=== PATIENT | male | born 1970 | race Caucasian/White ===

== ENCOUNTER → 2019-06-25 10:18 | Outpatient (CLI) | payer MEDICAID, SELFPAY ==
[2019-06-25 11:22] LABS: Hematocrit 35.9 % (40-54); Hemoglobin 11.7 g/dL (13.0-16.5); Mean Corp Hgb Conc 32.6 g/dL (32-36); Mean Corpuscular Hgb 30.3 pg (27.0-32.0); Mean Platelet Vol. 9.5 fl (6.2-12.0); Platelet Count 185 K/mm3 (150-450); RBC Distribution Width CV 12.7 % (11.6-14.6); RBC Distribution Width SD 43.3 fl (35.1-43.9); Red Blood Count 3.86 M/mm3 (4.6-6.2); White Blood Count 6.4 K/mm3 (4.4-11.0)
[2019-06-25 12:06] LABS: ALB/GLOB Ratio 0.5 RATIO (0.9-2.4); AST(SGOT) 47 U/L (15-37); Alanine Aminotransfer ALT/SGPT 52 U/L (16-61); Albumin, Serum 3.1 g/dL (3.2-5.0); Alkaline Phosphatase 73 U/L (45-117); Anion Gap 7 (5-15); BUN 24 mg/dL (7-18); BUN/Creat Ratio 35.2 RATIO (10-20); Calcium,Total 8.6 mg/dL (8.5-10.1); Chloride 105 mmol/L (98-107); Cholesterol 109 mg/dL (200); Creatinine, Serum 0.68 mg/dL (0.70-1.30); EST Glomerular Filtration Rate 131 mL/min (>60); Est Glom Filt Rate - Afr Amer 158 mL/min (>60); Globulin 5.8 g/dL (2.2-4.2); Glucose 86 mg/dL (74-106); High Density Lipoprotein 35 mg/dL; Potassium 3.8 mmol/L (3.5-5.1); Protein, Total 8.9 g/dL (6.4-8.2); Sodium Level 138 mmol/L (136-145); T4 Total, Thyroxin 10.3 ug/dL (4.5-12.1); Thyroid Stim Hormone (TSH) 1.76 uIU/mL (0.358-3.74); Triglycerides 54 mg/dL; Very Low Density Lipoprotein 11 mg/dL (5-40)
[2019-06-25 12:10] LABS: Hepatitis B Surface Antibody Non-Reactive; Hepatitis B Surface Antigen Non-Reactive (Nonreactive)
[2019-06-29 07:15] LABS: Absolute CD4 Helper 365 /uL (359-1519); Basophils (Absolute) 0 x10E3/uL (0.0-0.2); Comment 1b (.); Eosinophils 0 % (Not Estab.); Eosinophils (Absolute) 0 x10E3/uL (0.0-0.4); HCV Quant. RNA PCR 2040000 IU/mL (.); Hematocrit 34.1 % (37.5-51.0); Hemoglobin 11.4 g/dL (13.0-17.7); Hepatitis A AB, Total Positive (Negative); Hepatitis A IgM Antibody Negative (Negative); Immature Granulocytes 0 % (Not Estab.); Immature Granulocytes Absolute 0 x10E3/uL (0.0-0.1); Lymphs 25 % (Not Estab.); Lymphs (Absolute) 1.6 x10E3/uL (0.7-3.1); MCH 29.8 pg (26.6-33.0); MCHC 33.4 g/dL (31.5-35.7); MCV 89 fL (79-97); Monocytes 9 % (Not Estab.); Monocytes (Absolute) 0.6 x10E3/uL (0.1-0.9); Neutrophils 66 % (Not Estab.); Neutrophils (Absolute) 4.2 x10E3/uL (1.4-7.0); Percent % CD4 Pos. Lymph. 22.8 % (30.8-58.5); Platelets 190 x10E3/uL (150-450); RBC Count 3.82 x10E6/uL (4.14-5.80); RDW 13.1 % (12.3-15.4); WBC Count 6.5 x10E3/uL (3.4-10.8)
[2019-06-30 17:40] LABS: Hepatitis B Core Ab Total Negative (Negative)
[2019-06-30 20:19] LABS: HIV-1 RNA by PCR, Quant. 90 copies/mL (.); LOG10 HIV-1 RNA 1.954 (.)
[2019-07-01 10:56] LABS: Hepatitis C Genotype 1b
== END ==
PROVIDERS: Family Provider Family Medicine; PCP Family Medicine; Referring Provider Internal Medicine Infectious Disease; Visit Provider Internal Medicine Infectious Disease
DX: B18.2 Chronic viral hepatitis C (principal); Z21 Asymptomatic human immunodeficiency virus [HIV] infection status
CPT/HCPCS: 36415; 80053; 80061; 84436; 84443; 85027; 86361; 86704; 86706; 86708; 86709; 87340; 87522; 87536; 87902

== ENCOUNTER → 2019-07-04 11:03 | Outpatient (CLI) | payer MEDICAID, SELFPAY ==
[2019-07-04 11:26] VITALS: BP 112/73; PULSE 92; RESP 14; TEMP 36.3; O2SAT 95; BMI 19.8
--- NOTE | 2019-07-04 11:50 | WMO.HTC_ITS ---
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 He lived in [place] and moved to this area, wants to do follow up here. He has done 1 factor replacement for tooth extraction since January 2019. He is being seen at [facility] for Hepatitis C and HIV infection. Health History: Past Medical History (Last Updated 07/04/19 @ 11:24 by Kelin Drake) Arthritis (Acute) Asthma (Acute) HIV disease (Acute) Hemophilia B (Acute) Hepatitis C (Acute) Shingles (Acute) Chronic hip pain (Chronic) Family History (Last Updated 07/04/19 @ 11:24 by Kelin Drake) Father Lymphoma Mother Parkinson disease Social History Social History: No changes Smoking Status Never smoker Allergies/Adverse Reactions: Allergy/AdvReac Type Severity Reaction Status Date / Time aspirin AdvReac Hives Verified 07/04/19 11:20 Risk Factors Social History Social History: No changes Smoking Status Never smoker Tobacco Risk Data: Tobacco Risk Smoking Status Never smoker Type of tobacco: Smokeless tobacco usage: Never Items/Day: Year started: Years used: Counseled to quit/cut down: Reason for no counseling performed: Reason for no pharmacotherapy: Tobacco use comments: Passive smoke exposure: No Substance Risk Drug use: No Caffeine use [drinks/day]: 0 Alcohol use: No Type of alcohol: Drinks per day: Has patient felt the need to cut down: Has the patient been annoyed by complaints: Has the patient felt guilty about drinking: 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: Comments: Review of Systems Constitutional:: Denies: Fever, Sweats, Weight loss, Appetite change, Chills Cardiovascular:: Denies: Chest pain, Palpitations, Dyspnea on exertion, Orthopnea, PND, Shortness of breath Respiratory: Denies: Cough, Hemoptysis, Shortness of Breath, Wheezing Gastrointestinal:: Denies: Abdominal pain, Nausea, Vomiting, Diarrhea, Constipation, Hematochezia Genitourinary: Denies: Dysuria, Hematuria, 15, Flank pain Musculoskeletal:: Reports: Arthritis - R hip Skin: Denies: Rash, Skin Changes, Wounds Neurological:: Denies: Headache, Dizziness, Visual changes, Tinnitus, Hearing loss Psychiatric: Denies: Anxiety, Depression, Homicidal Ideations, Suicidal Ideations Vital Signs Height 5 ft 10.5 in Weight: 63.775 kg Weight in Pounds 140.6 lbs Pulse Ox 95 Temperature 97.3 F Pulse Rate 92 Respiratory Rate 14 Blood Pressure 112/73 Blood Pressure Position Sitting - Physical Exam General: Alert, Oriented x3, No apparent distress HEENT: Atraumatic, PERRLA, EOMI, Normocephalic Oropharynx:: Dry mucosa, Poor dentition - grinded teeth surface Neck:: Supple, Trachea midline. Negative for: JVD, bilateral Cardiac:: Regular rate, Regular rhythm, Normal S1, Normal S2. Negative for: Murmur Lungs: Clear to auscultation, Excusion symmetrical. Negative for: Rhonchi, Wheezes Abdomen:: Bowel sounds x 4, Soft, Non-tender, Non-distended. Negative for: Hepatosplenomegaly Extremities:: - - walking with a R lower leg limp and cane Neurological: Neuro grossly intact Skin:: Negative for: Lesions, Rash, Petechiae, Ecchymosis Psychiatric:: Appropriate affect, Euthymic Lymphatics:: Negative for: Cervical lymphadenopathy, Supraclavicular lymphadenopathy, Axillary lymphadenopathy Therapy ROM Screening - Subjective Subjective:: pts right hip is painful- comes and goes- pt is to have oral sx and then hip sx- pt states he will have to treat his hepC prio to his sx. pt amb. with straight cane - Objective Right shoulder flex:: 165 Left shoulder flex:: 155 Right shoulder extension:: 40 Left shoulder extension:: 40 Right elbox flex/ext:: 0/140 Left elbox flex/ext:: 0/140 Right elbow circumference:: 23cm Left elbow circumference:: 23cm Right forearm sup/pron:: WNL Left forearm sup/pron:: WNL Right knee flexion:: 1120 Left knee flexion:: 120 Right knee circumference:: 32cm Left knee circumference:: 34cm Right ankle dorsiflexion:: 25 Left ankle dorsiflexion:: 25 Right ankle Plan-flex:: 45 Left ankle Plan-flex:: 45 Right ankle circumference:: 23cm Left ankle circumference:: 23cm Right hip flexion:: 40 Left hip flexion:: 75 Right hip extension:: 10 Left hip extension:: 15 - Assessment Assessment:: pt demo limited right hip ROM-consistant with reports of scheduling a right hip replacement. pt use of straight cane for amb. therapist questioned if he felt he needed more suport with amb. pt denied at this time. Assessment and Plan Hemophilia B-clinically stable. Hepatitis C-awaiting therapy at [facility]. HIV-has stopped his medications because it makes his hip pain worse. R hip arthritis. Plan is to continue expectant management for Hemophilia B with Factor replacement as needed. Continue follow up with Orthopedic Surgeon, Hip surgery will done after therapy for hepatitis C. He will discuss HIV treatment with Dr. Signs. PARIS[place] 1 yr. Medications: Prescriptions This Visit Medication Instructions Recorded NK 07/04/19 Primary Care Provider: Tashi Mack DO Referring Provider: Mick Garibay MD
== END ==
PROVIDERS: Family Provider Family Medicine; PCP Family Medicine; Referring Provider Internal Medicine Hematology & Oncology; Visit Provider Internal Medicine Medical Oncology
DX: D67 Hereditary factor IX deficiency (principal); B20 Human immunodeficiency virus [HIV] disease

== ENCOUNTER → 2019-08-25 10:55 | Outpatient (CLI) | payer MEDICAID, SELFPAY ==
[2019-07-04 11:26] VITALS: BMI 19.8
--- NOTE | 2019-08-25 10:58 | US_ITS ---
STUDY: ABDOMINAL ULTRASOUND - RIGHT UPPER QUADRANT REASON FOR VISIT: Male, 48 years old HEP C TECHNIQUE: Ultrasound evaluation of the right upper quadrant was performed with real-time and static moreno-scale imaging. TECHNICAL QUALITY: Adequate. COMPARISON: None. FINDINGS: Pancreas: Visualized portions of pancreas are unremarkable. Liver: Measures 15.5 cm. Liver shows normal echogenicity. No masses identified. Gallbladder: No stones or wall thickening. Negative sonographic Ortiz''s sign. Multiple nonshadowing rounded foci are seen dependently and nondependently within the gallbladder, most likely polyps. Common bile duct: Measures 3 mm. No intraductal stones identified. Right kidney: Measures 9.9 cm in length. Normal contour. No cysts. No masses, stones, or hydronephrosis identified. Renal cortical thickness appears normal. Additional findings: None. US/Liver IMPRESSION: Multiple gallbladder polyps largest measuring up to 3 mm. Polyps of this size do not require regular follow-up as per most commonly held recommendations. Right upper quadrant abdominal ultrasound is otherwise within normal limits. Electronically Signed: Yaya Browne, at 19:53 EST Tel , Service support ,
[2019-08-25 14:46] LABS: Hepatitis C Antibody REACTIVE (Nonreactive)
== END ==
LOC: US 10:57
PROVIDERS: PCP Family Medicine
DX: B18.2 Chronic viral hepatitis C (principal)
CPT/HCPCS: 36415; 76705; 86803

== ENCOUNTER → 2019-11-03 14:13 | Outpatient (CLI) | payer MEDICAID, SELFPAY ==
[2019-07-04 11:26] VITALS: BMI 19.8
[2019-11-03 14:52] LABS: AST(SGOT) 23 U/L (15-37); Alanine Aminotransfer ALT/SGPT 20 U/L (16-61); Albumin, Serum 3.8 g/dL (3.2-5.0); Alkaline Phosphatase 92 U/L (45-117); Bilirubin, Direct 0.11 mg/dL (0.00-0.30); Globulin 4.7 g/dL (2.2-4.2); Protein, Total 8.5 g/dL (6.4-8.2)
[2019-11-06 03:06] LABS: HCV Quant. RNA PCR HCV Not Detected IU/mL (.)
== END ==
PROVIDERS: PCP Family Medicine
DX: B18.2 Chronic viral hepatitis C (principal)
CPT/HCPCS: 36415; 80076; 87522

== ENCOUNTER → 2019-12-23 08:19 | Outpatient (CLI) | payer MEDICAID, SELFPAY ==
[2019-07-04 11:26] VITALS: BMI 19.8
[2019-12-23 09:15] LABS: Absolute Lymphocyte Count 1.07 X10^3/uL (0.83-4.51); Basophil# 0.02 X10^3/uL; Basophil% 0.6 % (0-1); Eosinophil# 0.01 X10^3/uL; Eosinophils% 0.3 % (0-5); Hematocrit 43.5 % (40-54); Lymphocyte # 1.07 X10^3/ul (4.0); Lymphocyte % 31.7 % (19-41); Mean Corp Hgb Conc 32.2 g/dL (32-36); Mean Corpuscular Hgb 30.7 pg (27.0-32.0); Mean Corpuscular Volume 95.4 fL (80-94); Mean Platelet Vol. 9.5 fl (6.2-12.0); Monocyte# 0.32 X10^3/uL; Monocyte% 9.5 % (0-10); NRBC Flagged by Analyzer 0 % (0-5); Neutrophil # 1.95 X10^3/uL (2.7-7.7); Neutrophil % 57.6 % (47-70); Platelet Count 174 K/mm3 (150-450); RBC Distribution Width SD 46.1 fl (35.1-43.9); Red Blood Count 4.56 M/mm3 (4.6-6.2); White Blood Count 3.4 K/mm3 (4.4-11.0)
[2019-12-23 09:47] LABS: ALB/GLOB Ratio 0.8 RATIO (0.9-2.4); AST(SGOT) 20 U/L (15-37); Alanine Aminotransfer ALT/SGPT 24 U/L (16-61); Albumin, Serum 3.8 g/dL (3.2-5.0); Alkaline Phosphatase 86 U/L (45-117); Anion Gap 8 (5-15); BUN 23 mg/dL (7-18); BUN/Creat Ratio 26.1 RATIO (10-20); Bilirubin, Direct 0.13 mg/dL (0.00-0.30); Calcium,Total 8.7 mg/dL (8.5-10.1); Chloride 103 mmol/L (98-107); Cholesterol 165 mg/dL (200); Creatinine, Serum 0.88 mg/dL (0.70-1.30); EST Glomerular Filtration Rate 97 mL/min (>60); Est Glom Filt Rate - Afr Amer 117 mL/min (>60); Globulin 4.6 g/dL (2.2-4.2); Glucose 88 mg/dL (74-106); High Density Lipoprotein 46 mg/dL; Protein, Total 8.4 g/dL (6.4-8.2); Sodium Level 140 mmol/L (136-145); Thyroid Stim Hormone (TSH) 1.72 uIU/mL (0.358-3.74); Triglycerides 57 mg/dL; Very Low Density Lipoprotein 11 mg/dL (5-40)
[2019-12-24 17:17] LABS: Anti-Mitochondrial AB <20.0 Units (0.0-20.0)
[2019-12-26 16:08] LABS: Absolute CD4 Helper 378 /uL (359-1519); Basophils (Absolute) 0 x10E3/uL (0.0-0.2); Eosinophils 0 % (Not Estab.); Eosinophils (Absolute) 0 x10E3/uL (0.0-0.4); HCV Quant. RNA PCR HCV Not Detected IU/mL (.); Hematocrit 41.5 % (37.5-51.0); Hemoglobin 14.4 g/dL (13.0-17.7); Immature Granulocytes 1 % (Not Estab.); Immature Granulocytes Absolute 0 x10E3/uL (0.0-0.1); Lymphs 34 % (Not Estab.); Lymphs (Absolute) 1.1 x10E3/uL (0.7-3.1); MCH 32.1 pg (26.6-33.0); MCHC 34.7 g/dL (31.5-35.7); MCV 92 fL (79-97); Monocytes 7 % (Not Estab.); Monocytes (Absolute) 0.2 x10E3/uL (0.1-0.9); Neutrophils 57 % (Not Estab.); Neutrophils (Absolute) 1.8 x10E3/uL (1.4-7.0); Percent % CD4 Pos. Lymph. 34.4 % (30.8-58.5); Platelets 180 x10E3/uL (150-450); QNTFERON TB Mitogen Value > 10.00 IU/mL (.); QNTFERON TB Nil Value 0.04 IU/mL (.); QNTFERON TB1+ Ag Value 0.09 IU/mL (.); QNTFERON TB2+ Ag Value 0.04 IU/mL (.); RBC Count 4.49 x10E6/uL (4.14-5.80); RDW 13.8 % (11.6-15.4); WBC Count 3.2 x10E3/uL (3.4-10.8)
[2019-12-27 15:52] LABS: QNTIFERON TB Positive Criteria Negative (Negative)
[2019-12-28 21:14] LABS: HIV-1 RNA by PCR, Quant. < 20 copies/mL (.)
== END ==
PROVIDERS: PCP Family Medicine; Referring Provider Internal Medicine Infectious Disease; Visit Provider Internal Medicine Infectious Disease
DX: B18.2 Chronic viral hepatitis C (principal); Z21 Asymptomatic human immunodeficiency virus [HIV] infection status
CPT/HCPCS: 36415; 80053; 80061; 82248; 83516; 84443; 85025; 86361; 86480; 87522; 87536

== ENCOUNTER → 2020-02-24 09:42 | Outpatient (CLI) | payer MEDICAID, SELFPAY ==
[2019-07-04 11:26] VITALS: BMI 19.8
--- NOTE | 2020-02-24 09:52 | BD_ITS ---
STUDY: DUAL ENERGY X-RAY ABSORPTIOMETRY / DXA REASON FOR EXAM: Male, 49 years old. ON ANTI-VIRAL MEDS FOR HIV -- DOES NO EXERCISE -- LORETTA OF 2.5 INCHES TECHNIQUE: Bone Mineral Density (BMD) measurements of lumbar spine and bilateral hips were obtained. COMPARISON: None. FINDINGS: Lumbar Spine (L1-L4): g/cm2 (0.777) / T-score (-3.7) / Z-score (-3.5) Findings are suggestive of osteoporosis with a high fracture risk. Left Femur Total: g/cm2 (0.940) / T-score (-1.1) / Z-score (-0.8) Left Femoral Neck: g/cm2 (0.824) / T-score (-1.9) / Z-score (-1.2) Right Femur Total: g/cm2 (0.748) / T-score (-2.5) / Z-score (-2.1) Right Femoral Neck: g/cm2 (0.920) / T-score (-1.2) / Z-score (-0.5) BD/Dexa Bone Density Study IMPRESSION: The patient is considered osteoporotic as outlined below according to World Richard Organization (WHO) criteria with a high fracture risk. Reference Information: The T-score is the number of standard deviations above or below the standard which is normal for young adults at their peak bone mineral density. The World Health Organization (WHO) interprets the T-scores as follows: Above -1 Normal bone density Between -1 and -2.5 Osteopenia Equal to / or below -2.5 Osteoporosis As a practical clinical guideline, osteopenia may be graded as follows: Mild -1 through -1.5 Moderate -1.6 through -2.0 Severe -2.1 through -2.4 The Z-score is the number of standard deviations above or below age-matched controls. A Z-score of less than -1.5 would be considered abnormal. References: 1. NIH Osteoporosis and Related Bone Diseases http://www.osteo.org 2. International Society for Clinical Densitometry http://www.iscd.org 3. National Osteoporosis Foundation http://www.nof.org Electronically Signed: Hu Stewart, at 14:53 EDT , Service support ,
== END ==
PROVIDERS: PCP Family Medicine
DX: Z21 Asymptomatic human immunodeficiency virus [HIV] infection status (principal)
CPT/HCPCS: 77080

== ENCOUNTER 2020-05-18 10:18 | Outpatient (RCR) | payer MEDICAID, SELFPAY ==
[2019-07-04 11:26] VITALS: BMI 19.8
--- NOTE | 2020-05-18 10:51 | HP.PTEVAL ---
Patient's Visit Information BARBARA SONG is a 49 year old M referred to Physical Therapy by NAYE MEADE with a diagnosis of S/P R BRITTON lateral approach. Date of Evaluation: 05/18/20 Physical Therapist: ISAEL Bond - Visit Plan Frequency: 2-3x /Week Duration: 4-6 Weeks Plan: 2-3X/ week for 4-6 weeks for R hip abd strength, overall R hip strength, gait training, stairs, sit to stand transfers, gait training with HEP - Subjective Pt had a R THR down at [facility] on 04-07-2020. n He has a scar on the R lateral side of his hip. He is walking with a cane in his L hand for about a week and was walking with a walker before that. He has some other complications and getting lab work down as he is dizzy and fatigued. That started Apr 24.... that is the last infusion he took for his bleed complications.... the last 2 times it attacked his head and lasted a few hours and then he could think again and he quick the infusions. He lives in a one story home with no steps. He is driving. He reports that he has no trouble getting up out of a chair and he uses his arms. He has no pain in his hip.... he reports that his R hip is [address] do not cross legs. - Objective Gait: He walks with a straight cane in his L hand and walks with decreased time time on the R LE. He walks with a very apparent limp and most of his weight on the opp leg and cane in opp hand. He reports that his R leg is 2 inches shorter and is concerned about that. He has slightly decreased stride length on the R. Pt is very weak with a SLR.. on the R shaky. LE MMT: R hip flex 4-/5 and L hip flex4/5, R hip abd 3-/5 and L 4-/5, pt is able to 1/4 normal ROM bridges, B knee flex and knee ext 4/5 - Goals Goal 1:: I HEP Goal Time Frame: 6-8 Weeks Goal 2:: Increase R hip abd strength to 4-/5 Goal Time Frame: 6-8 Weeks Goal 3:: Walk with increase stride with a straight cane and more of an equal stance time with gait and progress to no cane if able. Goal Time Frame: 6-8 Weeks Goal 4:: Be able to get up out of a chair X 10 attempts with no arms on first attempt - Rehabilitation Potential Rehabilitation Potential: Good - Anticipated Interventions Patient/Client Instruction: Educate patient on: Condition, Plan of Care For the Purpose of:: To improve nutrient delivery to tissue, To improve muscle performance and motor function, To improve ability to perform ADL's, To increase tolerance to activity/condition/position, To improve performance and independence with ADL's, To decrease level of supervision to perform tasks, To improve ability of physical actions for home/community/work/leisure, To improve gait and locomotor functions, To improve health of tissue, To decrease soft tissue restriction, To increase flexibility/ROM, To improve balance, To improve safety with gait Therapeutic Exercise to Include: Strength training, Balance training, Postural training, Flexibilty training, Gait and locomotor training, Active ROM, Dynamic Lumbar Stabilization For the Purpose of:: To decrease pain, To increase ROM, To improve nutrient delivery to tissue, To increase oxygenation perfusion, To improve muscle performance and motor function, To improve ability to perform ADL's, To increase tolerance to activity/condition/position, To improve performance and independence with ADL's, To decrease level of supervision to perform tasks, To improve ability of physical actions for home/community/work/leisure, To improve gait and locomotor functions, To improve health of tissue, To increase flexibility/ROM, To improve endurance, To improve balance Functional Training to Include: Gait training For the Purpose of:: To improve gait and locomotor functions, To improve safety with gait Thank you for the opportunity to evaluate your patient. For Medicare and Medicare HMO plans, please review the plan of care and approve it. It will need to be FAXED BACK to us at [phone] for Medicare purposes. For Medicare only, by signing this I certify the plan of care. Please let me know if there are questions or concerns regarding this plan of care. Physician Signature: Date:
== END 2020-05-18 19:00 | disposition home or self-care (01) ==
LOC: PT 10:18
PROVIDERS: PCP Family Medicine
DX: Z96.641 Presence of right artificial hip joint (principal)
CPT/HCPCS: 97161

== ENCOUNTER 2020-05-18 12:15 | Outpatient (RCR) | payer MEDICAID, SELFPAY ==
[2019-07-04 11:26] VITALS: BMI 19.8
[2020-05-18 13:13] LABS: Absolute Lymphocyte Count 1.25 X10^3/uL (0.83-4.51); Absolute Neutrophil Count 3.7 X10^3/uL (2.0-7.7); Basophil# 0.02 X10^3/uL; Basophil% 0.4 % (0-1); Eosinophil# 0.02 X10^3/uL; Eosinophils% 0.4 % (0-5); Hematocrit 33.8 % (40-54); Hemoglobin 10.5 g/dL (13.0-16.5); Lymphocyte # 1.25 X10^3/ul (4.0); Mean Corp Hgb Conc 31.1 g/dL (32-36); Mean Corpuscular Hgb 29.2 pg (27.0-32.0); Mean Corpuscular Volume 94.2 fL (80-94); Mean Platelet Vol. 9.6 fl (6.2-12.0); Monocyte# 0.45 X10^3/uL; Monocyte% 8.3 % (0-10); NRBC Flagged by Analyzer 0 % (0-5); Neutrophil # 3.66 X10^3/uL (2.7-7.7); Neutrophil % 67.3 % (47-70); Platelet Count 257 K/mm3 (150-450); RBC Distribution Width CV 17.2 % (11.6-14.6); RBC Distribution Width SD 59.8 fl (35.1-43.9); Red Blood Count 3.59 M/mm3 (4.6-6.2); White Blood Count 5.4 K/mm3 (4.4-11.0)
[2020-05-18 13:30] LABS: Erythrocyte Sedimentation Rate 34 mm/hr (0-20)
[2020-05-18 14:00] LABS: Ferritin 271 ng/mL (26-388)
[2020-05-21 08:41] LABS: Copper, Serum or Plasma 143 ug/dL (72-166); Zinc, Plasma or Serum 96 ug/dL (56-134)
== END 2020-05-18 18:00 | disposition home or self-care (01) ==
LOC: LAB 12:15
PROVIDERS: PCP Family Medicine; Referring Provider Internal Medicine Hematology & Oncology; Visit Provider Internal Medicine Hematology & Oncology
DX: D64.9 Anemia, unspecified (principal)
CPT/HCPCS: 36415; 82525; 82728; 82746; 84630; 85025; 85652

== ENCOUNTER → 2020-08-10 10:05 | Outpatient (CLI) | payer MEDICAID, SELFPAY ==
[2019-07-04 11:26] VITALS: BMI 19.8
--- NOTE | 2020-08-10 10:15 | RAD_ITS ---
STUDY: X-RAY - CERVICAL SPINE REASON FOR EXAM: Male, 49 years old. PAIN TECHNIQUE: 3 view(s) of the cervical spine were obtained. COMPARISON: None FINDINGS: Normal anterior atlantoaxial articulation. Normal odontoid process. Normal cervical lordosis. There is multi-level endplate spondylosis. There is multi-level degenerative disc disease with multilevel disc space narrowing. Normal visualized intervertebral neuroforamina. The soft tissue structures are unremarkable. RAD/Cerv Spine 2 or 3 Views IMPRESSION: Moderate degenerative disc disease lower cervical spine. Electronically Signed: Uche Cerda MD at 16:53 EST Tel , Service support ,
--- NOTE | 2020-08-10 10:15 | RAD_ITS ---
STUDY: X-RAY - LUMBAR SPINE REASON FOR EXAM: Male, 49 years old. PAIN TECHNIQUE: 3 view(s) of the lumbar spine were obtained. COMPARISON: None FINDINGS: Normal lumbar lordosis. There is no substantial scoliosis. There is a normal alignment of the vertebrae. Normal vertebral bodies and endplates. Normal disc space heights. The soft tissue structures are unremarkable. RAD/Lumbar Spine 2 or 3 Views IMPRESSION: Normal x-ray examination of the lumbar spine. Electronically Signed: Uche Cerda MD at 16:52 EST Tel , Service support ,
== END ==
PROVIDERS: PCP Family Medicine; Visit Provider Chiropractor
DX: S13.4XXA Sprain of ligaments of cervical spine, initial encounter (principal); S33.5XXA Sprain of ligaments of lumbar spine, initial encounter
CPT/HCPCS: 72040; 72100